=== PATIENT | male | born 1965 | race Caucasian/White ===

== ENCOUNTER 2024-06-10 19:17 | Inpatient (IN) | payer MEDICAID ==
[~2024-06-10] VITALS: Ht 185.4 cm; Wt 81.6 kg
[2024-06-10 19:27] VITALS: BP 157/90; PULSE 105; RESP 16; TEMP 99.1; O2SAT 92
[2024-06-10] MEDS: PIPERACILLIN/TAZOBACTAM 3.375 GM in DEXT 5% MINI-BAG PLUS 50 ML IV ONE (19:45)
[2024-06-10 20:59] LABS: BASOPHILS # (AUTO) 0.1 K/uL (0.00-0.22); BASOPHILS % (AUTO) 1.3 % (0.0-2.0); EOSINOPHILS # (AUTO) 0.3 K/uL (0-0.4); EOSINOPHILS % (AUTO) 3.3 % (0.0-4.0); HEMATOCRIT 45.4 % (36-52); HEMOGLOBIN 15.1 g/dL (12.0-18.0); LYMPHOCYTES # (AUTO) 0.8 K/uL (2.0-11.5); LYMPHOCYTES % (AUTO) 9.3 % (20.5-51.1); MEAN CORPUSCULAR HEMOGLOBIN 29 pg (27-31); MEAN CORPUSCULAR HGB CONC 33 g/dL (33-37); MONOCYTES % (AUTO) 11.2 % (1.7-9.3); NEUTROPHILS # (AUTO) 6.9 K/uL (1.8-7.7); NEUTROPHILS % (AUTO) 74.9 % (42.2-75.2); PLATELET COUNT (AUTO) 255 K/uL (140-450); RED BLOOD CELL COUNT(AUTO) 5.22 MIL/uL (4.20-6.10); RED CELL DISTRIBUTION WIDTH 14.9 % (11.6-13.7); WHITE BLOOD COUNT (AUTO) 9.2 K/uL (4.8-10.8)
[2024-06-10 21:27] LABS: BILIRUBIN,URINE NEGATIVE (NEGATIVE); BLOOD, URINE NEGATIVE (NEGATIVE); COLOR,URINE YELLOW (YELLOW); LEUKOCYTE ESTERASE ,URINE NEGATIVE (NEGATIVE); NITRITE, URINE NEGATIVE (NEGATIVE); PH,URINE 6.5 (5.0-9.0); PROTEIN,URINE TRACE (NEGATIVE); UGLUCOSE 3+ (NEGATIVE); UROBILINOGEN,URINE 0.2 EU/dL (0.2 - 1)
[2024-06-10 21:29] LABS: APPEARANCE,URINE SLIGHTLY HAZY (CLEAR)
[2024-06-10 21:30] LABS: LACTIC ACID 1.2 mmol/L (0.4-2.0)
[2024-06-10 21:31] LABS: BACTERIA,URINE 0-2 /HPF (None Seen); INR 0.93 (0.8-1.2); MUCUS,URINE None Seen /LPF (None Seen); PARTIAL THROMBOPLASTIN TIME 30.8 secs (22-35.6); PROTHROMBIN TIME 9.8 secs (10.8-13.4); RBC,URINE 0-5 /HPF (0-5); SQUAMOUS EPITHELIAL CELL,UR 0-3 (FEW) /LPF (0-3 (FEW)); WBC,URINE 0 /HPF (0-5)
[2024-06-10] MEDS: NACL 0.9% 1,000 ML IV SCH (21:54)
[2024-06-10 21:57] LABS: CALCIUM 9.1 mg/dL (8.5-10.1); CARBON DIOXIDE 29.4 mmol/L (21-32); CREATININE 2.3 mg/dL (0.6-1.3); POTASSIUM 3.4 mmol/L (3.5-5.1)
[2024-06-10] MEDS ORDERED: PIPERACILLIN/TAZOBACTAM 3.375 GM VIAL IV ONE (22:00)
[2024-06-10 22:01] LABS: FLU A ANTIGEN negative (NEGATIVE); FLU B ANTIGEN NEGATIVE (NEGATIVE)
[2024-06-10 22:04] LABS: ALANINE AMINOTRANSFERASE 46 U/L (12-78); ALBUMIN 3.8 g/dL (3.4-5.0); ALKALINE PHOSPHATASE 99 U/L (50-136); ASPARTATE AMINOTRANSFERASE 30 U/L (15-37); BILIRUBIN,DIRECT 0.1 mg/dL (0.0-0.3); TOTAL BILIRUBIN 0.4 mg/dL (0.0-1.0); TOTAL PROTEIN, SERUM 7.4 g/dL (6.4-8.2)
[2024-06-10] MEDS: PIPERACILLIN/TAZOBACTAM 3.375 GM in DEXTROSE 5% 50 ML IV ONE (22:08)
[2024-06-11] MEDS: HYDROcodone/APAP 5/325 MG 1 TAB TAB PO ONE (04:30)
[2024-06-11] MEDS ORDERED: EMPA10TA PO (04:48)
[2024-06-11] MEDS ORDERED: ALLO100T21 PO (04:48)
[2024-06-11] MEDS ORDERED: ASPI-1822 PO (04:52)
[2024-06-11] MEDS ORDERED: LORazepam 1 MG TAB PO PRN (08:10)
[2024-06-11] MEDS ORDERED: ZOLPIDEM 5 MG TAB PO PRN (08:10)
[2024-06-11] MEDS ORDERED: ONDANSETRON 4 MG/2 ML VIAL IVP PRN (08:10)
[2024-06-11] MEDS: NACL 0.9% 1,000 ML IV SCH (08:21)
[2024-06-11] MEDS: DOCUSATE SODIUM 100 MG GELCAP PO SCH (11:06)
[2024-06-11] MEDS: HYDROcodone/APAP 5/325 MG 1 TAB TAB PO PRN (11:07)
[2024-06-11 17:10] VITALS: RESP 20; O2SAT 99
[2024-06-11] MEDS: BENZONATATE 100 MG CAPLF PO PRN (18:59)
[2024-06-11 20:00] VITALS: BP 152/83; PULSE 109; PULSE 152; PULSE 99; RESP 20; TEMP 99.6; O2SAT 99
[2024-06-11] MEDS: guaiFENesin 600 MG TABER PO SCH (21:01)
[2024-06-11] MEDS ORDERED: DEXTROSE 50% 50 ML SYR IVP PRN (23:05)
[2024-06-11] MEDS ORDERED: INSULIN LISPRO SLIDING SCALE 100 UNITS/ML VIAL SUBQ PRN (23:05)
[2024-06-12] MEDS: BLOOD GLUCOSE MONITORING 1 DEV DEV FS SCH (06:53)
[2024-06-12 07:15] LABS: BASOPHILS # (AUTO) 0.1 K/uL (0.00-0.22); BASOPHILS % (AUTO) 1.2 % (0.0-2.0); EOSINOPHILS # (AUTO) 0.3 K/uL (0-0.4); HEMATOCRIT 42.1 % (36-52); HEMOGLOBIN 14.2 g/dL (12.0-18.0); LYMPHOCYTES # (AUTO) 2.1 K/uL (2.0-11.5); LYMPHOCYTES % (AUTO) 24.8 % (20.5-51.1); MEAN CORPUSCULAR HEMOGLOBIN 29 pg (27-31); MEAN CORPUSCULAR HGB CONC 34 g/dL (33-37); MEAN CORPUSCULAR VOLUME 86.5 fL (80-94); MONOCYTES # (AUTO) 1.8 K/uL (0.8-1.0); MONOCYTES % (AUTO) 21.4 % (1.7-9.3); NEUTROPHILS # (AUTO) 4.1 K/uL (1.8-7.7); NEUTROPHILS % (AUTO) 49.6 % (42.2-75.2); PLATELET COUNT (AUTO) 203 K/uL (140-450); RED BLOOD CELL COUNT(AUTO) 4.87 MIL/uL (4.20-6.10); RED CELL DISTRIBUTION WIDTH 14.6 % (11.6-13.7); WHITE BLOOD COUNT (AUTO) 8.3 K/uL (4.8-10.8)
[2024-06-12 07:26] LABS: ALBUMIN 3.1 g/dL (3.4-5.0); ANION GAP 13.7 (8-16); CALCIUM 8.3 mg/dL (8.5-10.1); CARBON DIOXIDE 24.9 mmol/L (21-32); CREATININE 1.7 mg/dL (0.6-1.3); POTASSIUM 3.6 mmol/L (3.5-5.1); TOTAL BILIRUBIN 0.3 mg/dL (0.0-1.0); TOTAL PROTEIN, SERUM 6.4 g/dL (6.4-8.2)
[2024-06-12 08:00] VITALS: BP 152/83; PULSE 152; PULSE 77; RESP 18; RESP 20; TEMP 99.6; O2SAT 96; O2SAT 99
[2024-06-12] MEDS: ASCORBIC ACID 500 MG TAB PO SCH (09:13)
[2024-06-12] MEDS: ZINC SULF 220 MG CAP PO SCH (09:13)
[2024-06-12] MEDS: ATORVASTATIN 80 MG TAB PO SCH (09:13)
[2024-06-12] MEDS: VITAMIN D 400 IU TAB PO SCH (09:14)
[2024-06-12] MEDS: LOSARTAN 25 MG TAB PO SCH (09:14)
[2024-06-12] MEDS: ASPIRIN 81 MG TAB.CHEW PO SCH (09:14)
[2024-06-12] MEDS: PANTOPRAZOLE 40 MG INJ VIAL IVP SCH (09:15)
[2024-06-12 20:00] VITALS: BP 148/93; PULSE 80; PULSE 90; RESP 18; RESP 20; TEMP 99.1; O2SAT 96; O2SAT 99
[2024-06-13 07:35] LABS: BASOPHILS # (AUTO) 0.1 K/uL (0.00-0.22); BASOPHILS % (AUTO) 0.8 % (0.0-2.0); EOSINOPHILS # (AUTO) 0.6 K/uL (0-0.4); EOSINOPHILS % (AUTO) 6.1 % (0.0-4.0); HEMATOCRIT 43.2 % (36-52); HEMOGLOBIN 14.5 g/dL (12.0-18.0); LYMPHOCYTES # (AUTO) 2.3 K/uL (2.0-11.5); LYMPHOCYTES % (AUTO) 24.5 % (20.5-51.1); MEAN CORPUSCULAR HEMOGLOBIN 29 pg (27-31); MEAN CORPUSCULAR HGB CONC 34 g/dL (33-37); MEAN CORPUSCULAR VOLUME 86.2 fL (80-94); MONOCYTES # (AUTO) 1.4 K/uL (0.8-1.0); MONOCYTES % (AUTO) 15.3 % (1.7-9.3); NEUTROPHILS # (AUTO) 4.9 K/uL (1.8-7.7); NEUTROPHILS % (AUTO) 53.3 % (42.2-75.2); PLATELET COUNT (AUTO) 219 K/uL (140-450); RED BLOOD CELL COUNT(AUTO) 5.01 MIL/uL (4.20-6.10); RED CELL DISTRIBUTION WIDTH 14.8 % (11.6-13.7); WHITE BLOOD COUNT (AUTO) 9.2 K/uL (4.8-10.8)
[2024-06-13 07:48] LABS: ALBUMIN 3.1 g/dL (3.4-5.0); ANION GAP 13.9 (8-16); CALCIUM 8.3 mg/dL (8.5-10.1); CREATININE 1.6 mg/dL (0.6-1.3); POTASSIUM 3.9 mmol/L (3.5-5.1); TOTAL BILIRUBIN 0.4 mg/dL (0.0-1.0); TOTAL PROTEIN, SERUM 6.6 g/dL (6.4-8.2)
[2024-06-13 08:00] VITALS: BP 140/90; PULSE 75; RESP 18; RESP 20; TEMP 98.4; O2SAT 96
[2024-06-13] MEDS: amLODIPine 5 MG TAB PO SCH (09:00)
[2024-06-13] MEDS ORDERED: LEVO-481 PO (13:31)
[2024-06-13] MEDS ORDERED: LIP80 PO (13:31)
[2024-06-13] MEDS ORDERED: BENZ150C7 PO (13:31)
[2024-06-13] MEDS ORDERED: MUC600 PO (13:31)
[2024-06-13] MEDS ORDERED: HYDR-3293 PO (13:32)
[2024-06-13 16:31] VITALS: BP 140/90; PULSE 75; RESP 18; TEMP 98.4
== END 2024-06-13 17:35 | disposition home or self-care (01) | DRG 137 ==
LOC: MED 19:17 → MMU 06-11 08:08 → MTU 06-11 08:16
PROVIDERS: ADMIT Student in an Organized Health Care Education/Training Program; ATTEND Student in an Organized Health Care Education/Training Program
DX: U07.1 COVID-19 (principal); J12.82 Pneumonia due to coronavirus disease 2019; N17.9 Acute kidney failure, unspecified; E11.9 Type 2 diabetes mellitus without complications; I10 Essential (primary) hypertension; E87.6 Hypokalemia; Z79.82 Long term (current) use of aspirin; Z79.899 Other long term (current) drug therapy
CPT/HCPCS: 36415; 71045; 80048; 80053; 80076; 81001; 82948; 83036; 83605; 83880; 84484; 85025; 85610; 85730; 87040; 87081; 87086; 93005; 96374; 97116; 97163-GP; 99285; J0696; J1644; J1815; J2470; J2543; J7060